=== PATIENT | female | born 1960 | race Native Hawaiian/Other Pacific Islander ===

== ENCOUNTER 2019-07-12 23:55 | Emergency (ER) | payer OTHER, MEDICAID ==
[~2019-07-12] VITALS: Ht 175.3 cm; Wt 99.8 kg
[2019-07-13 02:04] LABS: INR 2.58 (0.9-1.15); Partial Thromboplastin Time 44.7 sec (23.64-32.05)
[2019-07-13 02:17] VITALS: BP 120/50
== END 2019-07-13 04:36 | disposition home or self-care (01) ==
LOC: ER 23:59
DX: T45.511A Poisoning by anticoagulants, accidental (unintentional), initial encounter (principal); H11.31 Conjunctival hemorrhage, right eye; I48.91 Unspecified atrial fibrillation; I10 Essential (primary) hypertension; E11.9 Type 2 diabetes mellitus without complications; Y92.89 Other specified places as the place of occurrence of the external cause
CPT/HCPCS: 36415; 82962; 85610; 85730

== ENCOUNTER 2020-03-31 04:21 | Emergency (ER) | payer OTHER, MEDICAID ==
[~2020-03-31] VITALS: Ht 175.3 cm; Wt 108.9 kg
[2020-03-31 05:27] LABS: Urine Bacteria NONE SEEN /hpf (None Seen); Urine Blood 2+ /uL (Negative); Urine Mucus FEW (None Seen); Urine Specific Gravity 1.026 (1.001-1.035); Urine WBC 8 /hpf (0 - 5)
[2020-03-31 08:32] LABS: Basophils # (auto) 0 10 ^3/uL (0-0.2); Basophils % (auto) 0.2 % (0.0-2.0); Eosinophils # (auto) 0.1 10 ^3/uL (0-0.8); Eosinophils % (auto) 0.5 % (0.0-7.0); Hematocrit 35.5 % (36.0-46.0); Hemoglobin 11.7 g/dL (12.2-16.2); Lymphocytes % (auto) 8.2 % (10.0-50.0); Mean Corpuscular Hemoglobin 30.7 pg (28.0-32.0); Mean Corpuscular Hgb Conc. 33.1 g/dL (32.0-36.0); Mean Corpuscular Volume 92.7 fL (80.0-100.0); Monocytes % (auto) 8.3 % (0.0-12.0); Neutrophils # (auto) 9.7 10 ^3/uL (1.6-8.6); Neutrophils % (auto) 82.8 % (37.0-80.0); Platelet Count (auto) 124 10^3/uL (140-450); Red Blood Cells 3.83 10^6/uL (4.0-5.20); White Blood Cell 11.8 10^3/uL (4.4-10.8)
[2020-03-31 08:48] LABS: INR 2.6 (0.9-1.15); Partial Thromboplastin Time 45.6 sec (23.0-31.2)
[2020-03-31 08:58] LABS: BUN/Creatinine Ratio 17.3; Calcium 8.4 mg/dL (8.5-10.1); Potassium 3.8 mmol/L (3.5-5.1)
[2020-03-31 09:03] LABS: Bilirubin, Total 1.5 mg/dL (0.2-1.0); Total Protein 7.4 g/dL (6.4-8.2)
[2020-03-31] MEDS ORDERED: ASPirin 81 mg TAB PO ONE (18:00)
[2020-04-01 08:12] VITALS: BP 124/77
== END 2020-04-01 08:01 | disposition home or self-care (01) ==
LOC: ER 04:21
DX: I24.9 Acute ischemic heart disease, unspecified (principal); I13.0 Hypertensive heart and chronic kidney disease with heart failure and stage 1 through stage 4 chronic kidney disease, or unspecified chronic kidney disease; E11.22 Type 2 diabetes mellitus with diabetic chronic kidney disease; N18.3 Chronic kidney disease, stage 3 (moderate); I50.43 Acute on chronic combined systolic (congestive) and diastolic (congestive) heart failure; M79.604 Pain in right leg; I87.2 Venous insufficiency (chronic) (peripheral); D64.9 Anemia, unspecified; E78.5 Hyperlipidemia, unspecified; Z86.73 Personal history of transient ischemic attack (TIA), and cerebral infarction without residual deficits; Z95.1 Presence of aortocoronary bypass graft
CPT/HCPCS: 36415; 71046; 80053; 81001; 83880; 84484; 85025; 85379; 85610; 85730; 93005; 93971

== ENCOUNTER 2020-05-30 09:43 | Observation (INO) | payer OTHER, MEDICAID ==
[~2020-05-30] VITALS: Ht 175.3 cm; Wt 106.0 kg
[2020-05-30 10:21] LABS: Basophils # (auto) 0.1 10 ^3/uL (0-0.2); Basophils % (auto) 1.3 % (0.0-2.0); Eosinophils # (auto) 0.1 10 ^3/uL (0-0.8); Eosinophils % (auto) 1.3 % (0.0-7.0); Hematocrit 35.6 % (36.0-46.0); Hemoglobin 11.6 g/dL (12.2-16.2); Lymphocytes # (auto) 0.6 10 ^3/uL (0.4-5.4); Mean Corpuscular Hgb Conc. 32.5 g/dL (32.0-36.0); Mean Corpuscular Volume 95.2 fL (80.0-100.0); Monocytes # (auto) 0.4 10 ^3/uL (0-1.3); Monocytes % (auto) 7.8 % (0.0-12.0); Neutrophils # (auto) 3.7 10 ^3/uL (1.6-8.6); Neutrophils % (auto) 76.6 % (37.0-80.0); Platelet Count (auto) 121 10^3/uL (140-450); Red Blood Cells 3.74 10^6/uL (4.0-5.20); Red Cell Distribution Width 15.8 % (11.8-14.3); White Blood Cell 4.9 10^3/uL (4.4-10.8)
[2020-05-30 10:56] LABS: Urine Bacteria FEW /hpf (None Seen); Urine Blood TRACE /uL (Negative); Urine Mucus FEW (None Seen); Urine Specific Gravity 1.027 (1.001-1.035); Urine WBC 5 /hpf (0 - 5)
[2020-05-30 11:00] LABS: Albumin 3.4 g/dL (3.4-5.0); Anion Gap 6 (5-15); Calcium 8.6 mg/dL (8.5-10.1); Carbon Dioxide 25 mmol/L (21-32); Chloride 112 mmol/L (98-107); Glucose 83 mg/dL (74-106); Magnesium 2.6 mg/dL (1.6-2.6); Potassium 3.7 mmol/L (3.5-5.1); Sodium 143 mmol/L (136-145)
[2020-05-30 11:18] LABS: Alanine Aminotransferase 18 U/L (13-56); Alkaline Phosphatase 64 U/L (45-117); Aspartate Aminotransferase 21 U/L (15-37); BUN/Creatinine Ratio 13.5; Bilirubin, Total 0.5 mg/dL (0.2-1.0); Blood Urea Nitrogen 19 mg/dL (7-18); GFR African American 49 mL/min; GFR Non-African American 40 mL/min; Total Protein 7.3 g/dL (6.4-8.2)
[2020-05-30] MEDS ORDERED: HEPARIN DRIP/D5W 100UNITS/ML 250 ML IV SCH ×2 (12:00→14:30)
[2020-05-30] MEDS ORDERED: MORPHINE SULF INJ 2 MG/ML SYRINGE 1ML IV PRN (12:00)
[2020-05-30] MEDS ORDERED: hydrALAZINE HCL 20 MG/ML VL IV PRN (12:00)
[2020-05-30] MEDS ORDERED: NITROGLYCERIN 0.4 MG SL TAB SL PRN (12:00)
[2020-05-30] MEDS ORDERED: HEPARIN SODIUM (PORCINE) 5000 UNITS/ML 1ML VIAL IV ONE (12:00)
[2020-05-30] MEDS ORDERED: phytonadione 10 MG in SODIUM CHL 0.9% 50 ML IV ONE (12:15)
[2020-05-30] MEDS ORDERED: ONDANSETRON HCL 4 MG/2 ML VIAL IV PRN (12:15)
[2020-05-30 13:36] LABS: INR 2.47 (0.9-1.15)
[2020-05-30 13:36] LABS: Basophils # (auto) 0 10 ^3/uL (0-0.2); Basophils % (auto) 0.5 % (0.0-2.0); Eosinophils # (auto) 0.1 10 ^3/uL (0-0.8); Eosinophils % (auto) 1.7 % (0.0-7.0); Hematocrit 34.8 % (36.0-46.0); Hemoglobin 11.5 g/dL (12.2-16.2); Lymphocytes # (auto) 0.6 10 ^3/uL (0.4-5.4); Lymphocytes % (auto) 11.3 % (10.0-50.0); Mean Corpuscular Hemoglobin 31.7 pg (28.0-32.0); Mean Corpuscular Hgb Conc. 33.1 g/dL (32.0-36.0); Mean Corpuscular Volume 95.8 fL (80.0-100.0); Monocytes # (auto) 0.5 10 ^3/uL (0-1.3); Monocytes % (auto) 9.7 % (0.0-12.0); Neutrophils # (auto) 4.2 10 ^3/uL (1.6-8.6); Neutrophils % (auto) 76.8 % (37.0-80.0); Nucleated Red Blood Cells % 0.1 %; Platelet Count (auto) 134 10^3/uL (140-450); Red Blood Cells 3.64 10^6/uL (4.0-5.20); Red Cell Distribution Width 15.6 % (11.8-14.3); White Blood Cell 5.5 10^3/uL (4.4-10.8)
--- NOTE | 2020-05-30 18:28 | NUR ---
ENDORSED ADMISSION TO TRADE MARK ATTORNEY RN. DOCUMENTED PHYSICAL ASSESSMENT AND WOUND AND SKIN.
--- NOTE | 2020-05-30 18:28 | NUR ---
Telemetry admit from ER JEZ TOLEDO admitted to Telemetry unit. Patient oriented to KENYON KNOX, RN primary RN, unit, room, bed, and unit policies regarding patient care. Patient now on continuous telemetry monitoring, tele box #[id number] and telemetry reading on arrival to unit is weighed by bed scale and encouraged to call if they need something. All questions and concerns addressed, patient verbalized understanding.
[2020-05-30 18:30] VITALS: BP 149/80
--- NOTE | 2020-05-30 18:50 | NUR ---
Dr Chandra calling this nurse's name to give orders re. pt's heparin and other anti-coagulants before this RN had clocked in. Jazmin waiting to give report.
[2020-05-30 19:00] VITALS: BP 149/80
[2020-05-30] MEDS ORDERED: ROSU20TA14 PO (19:18)
[2020-05-30] MEDS ORDERED: POTA10TA51 PO (19:18)
[2020-05-30] MEDS ORDERED: DRON400T PO (19:18)
[2020-05-30] MEDS ORDERED: FURO20TA3 PO (19:18)
[2020-05-30] MEDS ORDERED: CARV3.1240 PO (19:18)
[2020-05-30] MEDS ORDERED: PRE1T PO (19:18)
[2020-05-30] MEDS ORDERED: LEFL20TA PO (19:18)
[2020-05-30] MEDS ORDERED: GABA300C10 PO (19:18)
[2020-05-30] MEDS ORDERED: WARF2TAB49 PO (19:18)
--- NOTE | 2020-05-30 19:20 | NUR ---
Spoke with Sirisha in pharmacy now, re. Dr Greer's directive to discontinue heparin gtt for pt for tonight as well as all coumadin and warfarin until prothrombin time and INR are redrawn and resulted in a.m. alejandrina Wu RN went into pt's room and discontinued gtt before report. Dr. Greer now speaking with this RN; orders to prepare for cardiac cath 06/01/20 and daily PT and INR, and Multaq 400mg po bid received.
[2020-05-30 22:00] VITALS: BP 141/78
[2020-05-30] MEDS: CARVEDILOL 3.125 MG TAB PO SCH (22:18)
[2020-05-30] MEDS: ATORVASTATIN 20 MG TAB PO SCH (22:20)
[2020-05-30 22:50] LABS: INR 1.48 (0.9-1.15); Partial Thromboplastin Time 31.9 sec (23.0-31.2)
[2020-05-31 05:00] VITALS: BP 128/71
[2020-05-31 06:13] LABS: Basophils # (auto) 0 10 ^3/uL (0-0.2); Basophils % (auto) 0.6 % (0.0-2.0); Eosinophils # (auto) 0.1 10 ^3/uL (0-0.8); Hematocrit 32.5 % (36.0-46.0); Hemoglobin 10.5 g/dL (12.2-16.2); Lymphocytes # (auto) 0.6 10 ^3/uL (0.4-5.4); Lymphocytes % (auto) 16.3 % (10.0-50.0); Mean Corpuscular Hemoglobin 31.1 pg (28.0-32.0); Mean Corpuscular Hgb Conc. 32.4 g/dL (32.0-36.0); Mean Corpuscular Volume 95.9 fL (80.0-100.0); Monocytes # (auto) 0.3 10 ^3/uL (0-1.3); Monocytes % (auto) 8.8 % (0.0-12.0); Neutrophils # (auto) 2.9 10 ^3/uL (1.6-8.6); Neutrophils % (auto) 72.3 % (37.0-80.0); Platelet Count (auto) 91 10^3/uL (140-450); Red Blood Cells 3.39 10^6/uL (4.0-5.20); Red Cell Distribution Width 15.8 % (11.8-14.3)
[2020-05-31 06:27] LABS: INR 1.23 (0.9-1.15)
[2020-05-31 06:31] LABS: Calcium 8.3 mg/dL (8.5-10.1); Potassium 3.9 mmol/L (3.5-5.1)
[2020-05-31 06:33] LABS: BUN/Creatinine Ratio 17.8
--- NOTE | 2020-05-31 07:45 | NUR ---
Opening Shift Note Assumed care of patient, awake and alert. No S/S of distress/SOB or pain. Instructed on POC and to call for assistance PRN bed is locked in lowest position and bed rails up x2., will continue to monitor for changes Q1hr and PRN.
--- NOTE | 2020-05-31 08:30 | NUR ---
Dr. Greer at bedside Dr Greer explained left heart cath to patient and restarted heparin drip at 1000 units an hour.
[2020-05-31 08:58] VITALS: BP 121/77
[2020-05-31] MEDS: FUROSEMIDE 20 MG TAB PO SCH (09:48)
[2020-05-31] MEDS: CARVEDILOL 3.125 MG TAB PO SCH ×2 (09:49→21:47)
[2020-05-31 13:00] VITALS: BP 122/80
--- NOTE | 2020-05-31 13:23 | NUR ---
IV removal IV DC'd with sterile technique, catheter fully intact. Pressure dressing applied to site. Patient tolerated procedure well. Discharged with aftercare instructions per MD.
--- NOTE | 2020-05-31 13:25 | NUR ---
IV insertion IV access obtained, via clean sterile technique by inserting gauge catheter at after attempt(s). IV secured properly. No trauma to site. Patient tolerated well. NOTE:
[2020-05-31 16:03] LABS: INR 1.13 (0.9-1.15); Partial Thromboplastin Time 40.2 sec (23.0-31.2)
[2020-05-31 16:41] VITALS: BP 108/55
[2020-05-31] MEDS: HEPARIN DRIP/D5W 100UNITS/ML 250 ML IV SCH (18:24)
--- NOTE | 2020-05-31 19:30 | NUR ---
Opening Shift Note Assumed care of patient, awake and alert. No S/S of distress/SOB or pain. Instructed on POC and to call for assist PRN, will continue to monitor for changes Q1hr and PRN.
[2020-05-31 21:00] VITALS: BP 108/58
[2020-05-31] MEDS: ATORVASTATIN 20 MG TAB PO SCH (21:47)
--- NOTE | 2020-05-31 23:50 | NUR ---
covid swab done
[2020-06-01 01:18] LABS: INR 1.13 (0.9-1.15)
[2020-06-01 01:20] LABS: Partial Thromboplastin Time 120.7 sec (23.0-31.2)
--- NOTE | 2020-06-01 01:20 | NUR ---
stopped heparin drip for an hr as protocol
[2020-06-01 05:00] VITALS: BP 109/49
[2020-06-01 06:48] LABS: Basophils # (auto) 0 10 ^3/uL (0-0.2); Basophils % (auto) 0.6 % (0.0-2.0); Eosinophils # (auto) 0.1 10 ^3/uL (0-0.8); Eosinophils % (auto) 3.1 % (0.0-7.0); Hematocrit 34.1 % (36.0-46.0); Hemoglobin 11.4 g/dL (12.2-16.2); Lymphocytes # (auto) 0.9 10 ^3/uL (0.4-5.4); Lymphocytes % (auto) 19.9 % (10.0-50.0); Mean Corpuscular Hemoglobin 31.6 pg (28.0-32.0); Mean Corpuscular Hgb Conc. 33.4 g/dL (32.0-36.0); Mean Corpuscular Volume 94.7 fL (80.0-100.0); Monocytes # (auto) 0.4 10 ^3/uL (0-1.3); Monocytes % (auto) 9.4 % (0.0-12.0); Neutrophils # (auto) 2.9 10 ^3/uL (1.6-8.6); Nucleated Red Blood Cells % 0.1 %; Platelet Count (auto) 96 10^3/uL (140-450); Red Cell Distribution Width 15.5 % (11.8-14.3); White Blood Cell 4.3 10^3/uL (4.4-10.8)
[2020-06-01 07:07] LABS: Calcium 8.7 mg/dL (8.5-10.1); Potassium 3.3 mmol/L (3.5-5.1)
[2020-06-01 07:10] LABS: INR 1.12 (0.9-1.15)
[2020-06-01] MEDS: HEPARIN DRIP/D5W 100UNITS/ML 250 ML IV SCH (07:10)
[2020-06-01 07:11] LABS: BUN/Creatinine Ratio 14.9
--- NOTE | 2020-06-01 07:30 | NUR ---
OFF UNIT PATIENT TRANSPORTED TO MANAGER PRIMARY CARE WITH NIGHT RN AND TRACE CLERK. NO S/S OF DISTRESS/SOB AT TIME OF DEPARTURE. WILL CONTINUE TO MAINTAIN
--- NOTE | 2020-06-01 07:30 | NUR ---
brought pt down to [employer]
[2020-06-01] MEDS ORDERED: LIDOCAINE 2%HCL (LOCAL ANESTH.) INJ 20ML MDV ONE (07:34)
[2020-06-01 07:36] LABS: Partial Thromboplastin Time 75.7 sec (23.0-31.2)
--- NOTE | 2020-06-01 07:36 | NUR ---
CRITICAL RECEIVED CRITICAL LAB FROM [facility] APTT 75.7. DR QUIÑONES MADE AWARE. [facility] EX[facility]MIN[facility] HELPER TERMITE FOR PROCEDURE
--- NOTE | 2020-06-01 07:57 | NUR ---
closing note endorsed care to day RN
[2020-06-01] MEDS ORDERED: VERAPAMIL 2.5MG/ML INJ 2ML VIAL IV ONE (07:58)
[2020-06-01] MEDS ORDERED: HEPARIN SODIUM (PORCINE) 5000 UNITS/ML 1ML VIAL ONE (07:58)
[2020-06-01] MEDS ORDERED: fentaNYL CITRATE 100 MCG/2 ML VL ONE (07:58)
[2020-06-01] MEDS ORDERED: ANGIOMAX 250 MG VIAL IV ONE (07:58)
[2020-06-01] MEDS ORDERED: SODIUM CHL 0.9% 0 ML ONE (07:59)
[2020-06-01] MEDS ORDERED: MIDAZOLAM HCL 1MG/1ML-2 ML VIAL ONE (07:59)
[2020-06-01] MEDS ORDERED: IODIXANOL 320MG/ML 100ML BTL IV ONE (08:06)
[2020-06-01 08:35] VITALS: BP 112/54
--- NOTE | 2020-06-01 08:48 | NUR ---
Patient brought to recovery via bed, report received from ROCIO Rahman and ROCIO Brenner. Patient is AO x 4. NAD noted, denies pain at this time. Right radial site is benign no s/s of bleeding or hematoma formation. Vasc Band is in place. Positive circulation, movement and sensation noted to BUE. Patient verbalized understanding to post-procedure care instructions.
--- NOTE | 2020-06-01 09:00 | NUR ---
Spoke to MD Chandra Per , Heparin drip may be continued at previous rate once the Vasc Band is removed and there are no s/s of bleeding of hematoma formation.
--- NOTE | 2020-06-01 09:03 | NUR ---
Patient is resting in bed with eyes closed. Breaths are even and unlabored. NAD noted. Right radial site remains unchanged.
--- NOTE | 2020-06-01 09:15 | NUR ---
Report given to primary RNLeila.
--- NOTE | 2020-06-01 09:24 | NUR ---
Patient taken to telemetry unit via bed, cardiac sonographer in place. No s/s of distress/SOB noted upon departure. Primary RNLeila present at bedside to witness right radial site benign no s/s of bleeding or hematoma formation. Bed set in lowest locked position with side rails up x 2, call light is within reach and bed alarm set on for safety. Care endorsed to ROCIO Dee.
--- NOTE | 2020-06-01 09:30 | NUR ---
ON UNIT PATIENT RETURNED TO ROOM FROM INSTRUCTOR PAINTING. VASC BAND TO RIGHT RADIAL. NO BLEEDING NOTED. NO S/S OF DISTRESS, SOB, NO C/O PAIN. WILL CONTINUE TO MONITOR
--- NOTE | 2020-06-01 09:35 | NUR ---
MD ROUNDS DR QUIÑONES AT BEDSIDE DISCUSSING POC WITH PATIENT. ORDERS RECEIVED/ WILL CARRY OUT. WILL CONTINUE TO MONITOR
--- NOTE | 2020-06-01 09:50 | NUR ---
MD ROUNDS DR ZARCO AT BEDSIDE DISCUSSING POC WITH PATIENT. NEW ORDERS RECEIVED/WILL CARRY OUT. WILL CONTINUE TO MONITOR
[2020-06-01] MEDS: FUROSEMIDE 20 MG TAB PO SCH (09:59)
[2020-06-01] MEDS: CARVEDILOL 3.125 MG TAB PO SCH ×2 (09:59→21:18)
--- NOTE | 2020-06-01 10:20 | NUR ---
VASC BAND 1020 2ML AIR REMOVED, NO BLEEDING NOTED 1035 2ML AIR REMOVED, NO BLEEDING NOTED 1050 2ML AIR REMOVED, NO BLEEDING NOTED 1110 2ML AIR REMOVED, NO BLEEDING NOTED 1130 2ML AIR REMOVED, NO BLEEDING NOTED
[2020-06-01] MEDS ORDERED: POTASSIUM EFFERVESENT TAB 25 MEQ PO ONE (10:45)
--- NOTE | 2020-06-01 11:40 | NUR ---
VASC BAND VASC BAND REMOVED. NO BLEEDING NOTED. EDUCATED PATIENT TO NOT PUT ANY PRESSURE ON RIGHT WRIST, AND NO LIFTING. PATIENT VERBALIZED UNDERSTANDING. WILL CONTINUE TO MONITOR
--- NOTE | 2020-06-01 12:06 | NUR ---
HEPARIN DRIP HEPARIN DRIP RESUMED AT 9ML/HR PER DR ORDERS. NEW APTT LAB DRAWN 1800 PER PHARMACIST. WILL CONTINUE TO MONITOR
--- NOTE | 2020-06-01 12:07 | NUR ---
DR ZARCO RECEIVED NEW ORDER FROM DR ZARCO RE: COUMADIN. WILL CARRY OUT. WILL CONTINUE TO MONITOR
[2020-06-01] MEDS ORDERED: HEPARIN DRIP/D5W 100UNITS/ML 250 ML IV SCH (12:08)
[2020-06-01] MEDS ORDERED: WARFARIN SODIUM 10 MG TAB PO ONE (12:15)
--- NOTE | 2020-06-01 12:30 | NUR ---
PHARMACIST SPOKE WITH GRACE PHARMACIST, RE: COUMADIN. PER GRACE; COUMADIN TO BE PER PROTOCOL
--- NOTE | 2020-06-01 12:30 | NUR ---
REPORT RECEIVED FROM TREVOR Figueredo RN WILL CONTINUE POC
[2020-06-01 13:00] VITALS: BP 124/72
--- NOTE | 2020-06-01 15:49 | NUR ---
HEPARIN GTT INCREASED PER MAR BASED ON PTT OF 27.9 GTT RUNNING AT 13ML/HR
[2020-06-01 17:00] VITALS: BP 104/56
[2020-06-01 18:23] LABS: INR 1.08 (0.9-1.15); Partial Thromboplastin Time 59.5 sec (23.0-31.2)
--- NOTE | 2020-06-01 18:56 | NUR ---
PTT RESULT, NO CHANGE TO GTT RATE PTT 59.5. NO TITRATION NEEDED PER MAR
[2020-06-01] MEDS: ATORVASTATIN 20 MG TAB PO SCH (21:18)
[2020-06-01 21:59] VITALS: BP 110/65
[2020-06-02 02:44] LABS: INR 1.3 (0.9-1.15); Partial Thromboplastin Time > 139.0 sec (23.0-31.2)
--- NOTE | 2020-06-02 03:18 | NUR ---
HELD HEPARIN DROP CRITICAL APTT @ 139 HOLDING DRIP FOR 1 HOUR PER PROTOCOL. WILL DECREASE DRIP IN 1 HOUR AND RESTART.
[2020-06-02 05:00] VITALS: BP 108/64
[2020-06-02 06:14] LABS: Basophils # (auto) 0 10 ^3/uL (0-0.2); Basophils % (auto) 0.8 % (0.0-2.0); Eosinophils # (auto) 0.1 10 ^3/uL (0-0.8); Eosinophils % (auto) 2.7 % (0.0-7.0); Hematocrit 37.8 % (36.0-46.0); Hemoglobin 12.7 g/dL (12.2-16.2); Lymphocytes % (auto) 21.3 % (10.0-50.0); Mean Corpuscular Hemoglobin 31.8 pg (28.0-32.0); Mean Corpuscular Hgb Conc. 33.6 g/dL (32.0-36.0); Mean Corpuscular Volume 94.6 fL (80.0-100.0); Monocytes # (auto) 0.4 10 ^3/uL (0-1.3); Monocytes % (auto) 7.8 % (0.0-12.0); Neutrophils # (auto) 3.2 10 ^3/uL (1.6-8.6); Neutrophils % (auto) 67.4 % (37.0-80.0); Nucleated Red Blood Cells % 0.2 %; Platelet Count (auto) 122 10^3/uL (140-450); Red Blood Cells 3.99 10^6/uL (4.0-5.20); Red Cell Distribution Width 15.6 % (11.8-14.3); White Blood Cell 4.8 10^3/uL (4.4-10.8)
[2020-06-02 06:31] LABS: INR 1.2 (0.9-1.15)
[2020-06-02 06:42] LABS: Calcium 8.8 mg/dL (8.5-10.1); Potassium 3.3 mmol/L (3.5-5.1)
--- NOTE | 2020-06-02 07:05 | NUR ---
ASSUMED CARE OF PATIENT RESTING WITH EYES CLOSED. RESPIRATIONS EQUAL AND UNLABORED AT THIS TIME. HEPARIN DRIP RUNNING AT 10ML/HR. BED LOCKED IN LOWEST POSITION, HOB ELEVATED AT LEAST 30 DEGREES, CALL LIGHT IS WITHIN REACH AND SIDE RAILS UP X 2.
--- NOTE | 2020-06-02 08:03 | NUR ---
SPOKE WITH PHARMACIST ON PHONE REGARDING STARTING COUMADIN THIS AM. INSTRUCTED TO CHECK APTT THIS MORNING AT 10AM AND PHARMACIST VERBALIZED THAT HE WILL START DOSE OF COUMADIN. HOWEVER PHARMACIST VERBALIZED THAT PER PROTOCOL COUMADIN DOSE WILL NOT BE ADMINISTERED UNTIL 1700.
[2020-06-02 09:00] VITALS: BP 111/52
--- NOTE | 2020-06-02 09:00 | NUR ---
MD ROUNDS MD ROUNDS WITH DR QUIÑONES. ORDERS RECEIVED FOR 40MEQ OF POTASSIUM PO AND STAT LAB DRAW OF PT/PTT. CONTINUE CARE.
[2020-06-02] MEDS ORDERED: POTASSIUM CHL 20 Meq TABLET PO ONE (09:15)
[2020-06-02] MEDS: FUROSEMIDE 20 MG TAB PO SCH (09:45)
[2020-06-02] MEDS: CARVEDILOL 3.125 MG TAB PO SCH ×2 (09:47→22:00)
[2020-06-02 11:22] LABS: INR 1.3 (0.9-1.15)
[2020-06-02 11:26] LABS: Partial Thromboplastin Time 97.3 sec (23.0-31.2)
--- NOTE | 2020-06-02 11:33 | NUR ---
Nutrition Assessment Est energy needs [id number] kcal (14-18 kcal/kg BW 106.3kg) Est protein needs 66-86g (1-1.3g/kg IBW 66kg) Will reassess prn. Addendum: 06/02/20 at [address] Amended: Links added.
--- NOTE | 2020-06-02 11:42 | NUR ---
PTT RESULT, NO CHANGE TO GTT RATE PTT 97.3. RECEIVED. HEPARIN DRIP WILL BE HELD FOR 1 HOUR AND THEN DECREASED BY [address] ZARCO IS AWARE. SPOKE WITH DR ZARCO ON THE PHONE. INSTRUCTED TO REQUEST PHARMACY TO GIVE DOSE OF COUMADIN NOW INSTEAD OF AT 1700. SPOKE WITH PHARMACIST ON THE PHONE AND SHE VERBALIZED THAT SHE WILL WORK ON DOSING THE COUMADIN AT THIS TIME.
[2020-06-02] MEDS ORDERED: WARFARIN SODIUM 10 MG TAB PO ONE (12:00)
[2020-06-02] MEDS ORDERED: HEPARIN DRIP/D5W 100UNITS/ML 250 ML IV SCH (12:30)
[2020-06-02 13:00] VITALS: BP 98/49
--- NOTE | 2020-06-02 13:19 | NUR ---
HEPARIN GTT DECREASED PER MAR BASED ON PTT OF 97.3 GTT RUNNING AT 7ML/HR Addendum: 06/02/20 at 1320 by STEPHON KELLER RN RN INCORRECT TIME. TIME FOR THIS NOTE SHOULD BE 12:42
--- NOTE | 2020-06-02 13:20 | NUR ---
SPOKE WITH LAB SPOKE WITH LAB REGARDING TIME OF NEXT PTT DRAW. WAS INFORMED THAT THE NEXT TIME PTT WILL BE DRAWN IS AT 1630
[2020-06-02 17:00] VITALS: BP 106/59
--- NOTE | 2020-06-02 18:34 | NUR ---
HOSPITALIST PAGED REGARDING LACK OF MILD PRN PAIN MEDICATION FOR PATIENT. AWAITING CALL BACK.
--- NOTE | 2020-06-02 18:47 | NUR ---
PTT RESULT, NO CHANGE TO GTT RATE PTT 61.2. NO TITRATION NEEDED PER MAR
--- NOTE | 2020-06-02 18:47 | NUR ---
HOSPITALIST RETURNED CALL INSTRUCTED BY HOSPITALIST TO INFORM DR ZARCO OF PATIENT'S COMPLAINTS OF PAIN.
--- NOTE | 2020-06-02 18:49 | NUR ---
DR ZARCO CALLED REGARDING LACK OF MILD PRN PAIN MEDICATION FOR PATIENT. AWAITING CALL BACK.
[2020-06-02 19:04] LABS: INR 1.55 (0.9-1.15)
--- NOTE | 2020-06-02 19:04 | NUR ---
DR ZARCO RETURNED CALL. ORDERS RECEIVED FOR TYLENOL [id number] PRN AND TO RESTART PREDNISONE PER HOME DOSE.
[2020-06-02] MEDS ORDERED: ACETAMINOPHEN 500 MG TAB PO PRN (19:15)
--- NOTE | 2020-06-02 19:22 | NUR ---
ENDORSED CARE TO NOC SHIFT RN
[2020-06-02 20:00] VITALS: BP 109/62
[2020-06-02 22:00] VITALS: BP 97/54
[2020-06-02] MEDS: ATORVASTATIN 20 MG TAB PO SCH (22:33)
[2020-06-02] MEDS: predniSONE 5 MG TAB PO SCH (22:37)
[2020-06-03 00:08] LABS: INR 1.81 (0.9-1.15); Partial Thromboplastin Time 62.8 sec (23.0-31.2)
[2020-06-03 05:00] VITALS: BP 106/55
--- NOTE | 2020-06-03 05:48 | NUR ---
PT RESTED WELL THROUGHOUT THE NIGHT; NO DISTRESS OBSERVED; CALL LIGHT IN REACH.
[2020-06-03 06:26] LABS: Basophils # (auto) 0 10 ^3/uL (0-0.2); Basophils % (auto) 0.5 % (0.0-2.0); Eosinophils # (auto) 0.1 10 ^3/uL (0-0.8); Eosinophils % (auto) 1.5 % (0.0-7.0); Hematocrit 39.3 % (36.0-46.0); Lymphocytes # (auto) 0.8 10 ^3/uL (0.4-5.4); Lymphocytes % (auto) 18.2 % (10.0-50.0); Mean Corpuscular Hemoglobin 31.2 pg (28.0-32.0); Mean Corpuscular Hgb Conc. 33.2 g/dL (32.0-36.0); Mean Corpuscular Volume 94.3 fL (80.0-100.0); Monocytes # (auto) 0.3 10 ^3/uL (0-1.3); Monocytes % (auto) 6.4 % (0.0-12.0); Neutrophils # (auto) 3.4 10 ^3/uL (1.6-8.6); Neutrophils % (auto) 73.4 % (37.0-80.0); Nucleated Red Blood Cells % 0.1 %; Platelet Count (auto) 128 10^3/uL (140-450); Red Blood Cells 4.17 10^6/uL (4.0-5.20); Red Cell Distribution Width 15.5 % (11.8-14.3); White Blood Cell 4.6 10^3/uL (4.4-10.8)
[2020-06-03 06:37] LABS: INR 2.35 (0.9-1.15)
[2020-06-03 06:41] LABS: BUN/Creatinine Ratio 14.7; Calcium 8.9 mg/dL (8.5-10.1); Potassium 3.9 mmol/L (3.5-5.1)
--- NOTE | 2020-06-03 07:12 | NUR ---
Physician Spoke to MD Torres, Per MD Torres, stop Heparin drip at this time and patient may be discharged after dose of coumadin per pharmacy protocol. Will carry out new orders.
[2020-06-03 09:00] VITALS: BP 108/68
[2020-06-03 09:35] LABS: INR 2.55 (0.9-1.15); Partial Thromboplastin Time 51.5 sec (23.0-31.2)
[2020-06-03] MEDS: CARVEDILOL 3.125 MG TAB PO SCH (09:58)
[2020-06-03] MEDS: FUROSEMIDE 20 MG TAB PO SCH (09:58)
[2020-06-03] MEDS: predniSONE 5 MG TAB PO SCH (09:58)
[2020-06-03 10:53] VITALS: BP 108/68
[2020-06-03] MEDS ORDERED: WARFARIN SODIUM 2.5 MG TAB PO ONE (12:00)
== END 2020-06-03 13:10 | disposition home or self-care (01) ==
LOC: ER 09:43 → TELE 09:44 → TELE-WESTW 18:29
PROVIDERS: ADMIT Internal Medicine; ATTEND Internal Medicine
DX: I25.10 Atherosclerotic heart disease of native coronary artery without angina pectoris (principal); Z20.828 Contact with and (suspected) exposure to other viral communicable diseases; I24.9 Acute ischemic heart disease, unspecified; I35.0 Nonrheumatic aortic (valve) stenosis; I13.0 Hypertensive heart and chronic kidney disease with heart failure and stage 1 through stage 4 chronic kidney disease, or unspecified chronic kidney disease; E11.22 Type 2 diabetes mellitus with diabetic chronic kidney disease; I50.9 Heart failure, unspecified; N18.9 Chronic kidney disease, unspecified; E66.01 Morbid (severe) obesity due to excess calories; I49.5 Sick sinus syndrome; M06.9 Rheumatoid arthritis, unspecified; E78.5 Hyperlipidemia, unspecified; I48.91 Unspecified atrial fibrillation; Z86.73 Personal history of transient ischemic attack (TIA), and cerebral infarction without residual deficits; Z95.0 Presence of cardiac pacemaker; Z79.899 Other long term (current) drug therapy; Z95.2 Presence of prosthetic heart valve; Z79.01 Long term (current) use of anticoagulants
CPT/HCPCS: 36415; 71046; 80048; 80053; 81001; 83735; 84484; 85025; 85610; 85730; 87426; 93005; 93306; 96365; 96366; 96375; 99285; C1769; C1887; C1894; G0378; J1644; J2250; J3010; J3430; J7030; J7512; Q9967; U0003; 99152